=== PATIENT | female | born 2000 | race Caucasian/White ===

== ENCOUNTER 2024-01-25 19:48 | Emergency (ER) | payer BC ==
[~2024-01-25] VITALS: Ht 182.9 cm; Wt 71.2 kg
[2024-01-25 20:37] LABS: BASO # 0.02 K/mm3 (0.02-0.10); EOS # 0.13 K/mm3 (0.04-0.40); HEMATOCRIT 34.8 % (37.0-47.0); HEMOGLOBIN 12.1 g/dL (12.5-16.0); MEAN CELL VOLUME 88 fl (78-100); MEAN CORPUSCULAR HEMOGLOBIN 31 pg (27-31); MEAN CORPUSCULAR HGB CONC 35 g/dL (33-37); MONO # 0.48 K/mm3 (0.20-0.80); NEU # 1.81 K/mm3 (1.40-6.50); PLATELET COUNT 212 K/mm3 (130-400); RED BLOOD COUNT 3.95 M/mm3 (4.10-5.30); RED CELL DISTRIBUTION WIDTH 11.9 % (11.5-14.5); WHITE BLOOD COUNT 4.4 K/mm3 (4.8-10.8)
[2024-01-25 20:46] LABS: CALCIUM 9.2 mg/dL (8.3-10.5)
[2024-01-25 20:47] LABS: TOTAL PROTEIN 6.5 g/dL (6.4-8.3)
[2024-01-25 21:01] LABS: TOTAL BILIRUBIN 0.2 mg/dL (0.2-1.2)
[2024-01-25 21:05] LABS: D-DIMER 1.51 mg/L FEU (0.15-0.50)
[2024-01-25] MEDS ORDERED: Iohexol 350 - 100 ML VIAL IV ONE (22:09)
[2024-01-25 23:00] VITALS: BP 105/65
== END 2024-01-25 23:03 | disposition home or self-care (01) ==
LOC: ED 19:48
PROVIDERS: Physician Assistant
DX: R55 Syncope and collapse (principal); D64.9 Anemia, unspecified; G40.909 Epilepsy, unspecified, not intractable, without status epilepticus; F32.A Depression, unspecified; Z79.899 Other long term (current) drug therapy
CPT/HCPCS: Q9967